=== PATIENT | female | born 1940 | race Caucasian/White ===

== ENCOUNTER 2016-07-29 10:31 | Inpatient (IN) | payer OTHER, BC ==
[~2016-07-29] VITALS: Ht 152.4 cm; Wt 74.7 kg
[~2016-07-29 10:31] MED LIST: ASPIR 8181 M1 PO; ASPIR-MOX 325325 M1 PO; ATIVAN0.5 M1 PO; ATIVAN0.5 MG PO; ATORVASTATIN CA20 MG PO; Aspirin PO; CARDIZEM CD120 M1 PO; CITALOPRAM HBR20 MG PO; FUROSEMIDE20 MG PO; FUROSEMIDE40 MG PO; HUMULIN N100 UNITS/ SC; HUMULIN N100 UNITS/ SQ; K-DUR10 ME1 PO; K-DUR20 MEQ PO; LASIX10 MG PO; LASIX20 MG PO; LASIX40 MG PO; LISINOPRIL40 MG PO; LOPRESSOR25 MG PO; NORVASC10 MG PO; NovoLIN N (NPH),Humu SC; OMEPRAZOLE20 M2 PO; TYLENOL EXTRA500 MG PO; WARFARIN SODIU2.5 MG PO; ZESTRIL,PRINIVI30 MG PO; ZOCOR40 MG PO
[2016-07-29 12:02] LABS: HEMATOCRIT 32.6 % (36.0-46.0); MCH 24.6 PG (29.0-34.0); MCHC 31.3 G/DL (30.0-36.0); MCV 78.7 FL (83-99); MEAN PLAT.VOLUME 11.5 uM^3 (9.5-12.4); PLATELET COUNT 196 K/uL (156-360); RBC DIS.WIDTH-CV 17.1 % (11.8-14.6); RBC DIS.WIDTH-SD 47.2 % (39-53); RED BLOOD COUNT 4.14 M/uL (3.80-5.20); WHITE BLOOD COUNT 5.6 K/uL (4.1-10.2)
[2016-07-29 12:13] LABS: CHLORIDE 101 mEq/L (99-109); INTER. NORMALIZED RATIO 3.2; POTASSIUM 4.2 mEq/L (3.7-5.4); PROTHROMBIN TIME 33.5 (9.2-11.2); SODIUM 140 mEq/L (136-147)
[2016-07-29 12:15] LABS: GLUCOSE 135 mg/dL (70-99)
[2016-07-29 12:16] LABS: ANION GAP 11 MEQ/L (2-14)
[2016-07-29 12:19] LABS: GFR ESTIMATE (CALCULATED) > 59 mL/min/
[2016-07-29 12:20] LABS: UREA NITROGEN (BUN) 17 mg/dL (9-23)
[2016-07-29 12:22] LABS: LIPASE 36 U/L (1.0-51.0)
[2016-07-29 12:25] LABS: TROP-I INTERPRETATION NEGATIVE; TROPONIN-I 0.03 ng/mL (0.0-0.30)
[2016-07-29 12:40] LABS: ADD MIUA? NO; BILIRUBIN NEGATIVE; BLOOD NEGATIVE; COLOR YELLOW ((YELLOW)); GLUCOSE (STRIP) NEGATIVE; KETONES NEGATIVE; LEUKOCYTES NEGATIVE; NITRITE NEGATIVE; PROTEIN (STRIP) NEGATIVE; SPECIFIC GRAVITY 1.011 (1.000-1.030); UCUL ADDED? NO; UROBILINOGEN 0.2 MG/DL (0.2-1.0)
[2016-07-29] MEDS ORDERED: LORAZEPAM0.5 MG PO ×2 (17:05→17:41)
[2016-07-29] MEDS ORDERED: FUROSEMIDE20 MG PO (17:05)
[2016-07-29] MEDS ORDERED: CARTIA XT120 MG PO (17:24)
[2016-07-29] MEDS ORDERED: LOSARTAN POTASS50 MG PO (17:25)
[2016-07-29] MEDS ORDERED: LASIX40 MG PO (17:47)
[2016-07-29] MEDS ORDERED: WARFARIN SODIUM1 MG PO (17:51)
[2016-07-29 22:02] VITALS: BP 136/83
[2016-07-30 04:17] VITALS: BP 143/67
[2016-07-30 07:04] VITALS: BP 115/56
[2016-07-30 07:11] LABS: INTER. NORMALIZED RATIO 3.1
[2016-07-30 07:20] LABS: ANION GAP 10 MEQ/L (2-14); CHLORIDE 97 MEQ/L (99-109); GFR ESTIMATE (CALCULATED) > 59 mL/min/; POTASSIUM 3.8 MEQ/L (3.7-5.4); SAMPLE HEMOLYSIS CHECK 0; SAMPLE ICTERIC CHECK 0; SAMPLE LIPEMIA CHECK 0; SODIUM 141 MEQ/L (136-147); UREA NITROGEN (BUN) 15 mg/dL (9-23)
[2016-07-30 07:23] LABS: GLUCOSE 95 mg/dL (70-99)
[2016-07-30 07:47] LABS: POINT-OF-CARE METER ID UU13113831
[2016-07-30 12:17] VITALS: BP 136/92
[2016-07-30 16:55] VITALS: BP 130/63
[2016-07-30 21:00] VITALS: BP 119/58
[2016-07-30 23:49] VITALS: BP 156/87
[2016-07-31 05:10] VITALS: BP 136/72
[2016-07-31 05:31] LABS: HEMATOCRIT 34.7 % (36.0-46.0); MCH 24.3 PG (29.0-34.0); MCHC 30.5 G/DL (30.0-36.0); MCV 79.6 FL (83-99); MEAN PLAT.VOLUME 10.4 uM^3 (9.5-12.4); PLATELET COUNT 188 K/uL (156-360); RBC DIS.WIDTH-CV 16.8 % (11.8-14.6); RBC DIS.WIDTH-SD 48.5 % (39-53); RED BLOOD COUNT 4.36 M/uL (3.80-5.20); WHITE BLOOD COUNT 6.2 K/uL (4.1-10.2)
[2016-07-31 05:39] LABS: INTER. NORMALIZED RATIO 2.7
[2016-07-31 06:10] LABS: ANION GAP 8 MEQ/L (2-14); CHLORIDE 95 MEQ/L (99-109); GFR ESTIMATE (CALCULATED) > 59 mL/min/; GLUCOSE 100 mg/dL (70-99); POTASSIUM 3.6 MEQ/L (3.7-5.4); SAMPLE HEMOLYSIS CHECK 0; SAMPLE ICTERIC CHECK 0; SAMPLE LIPEMIA CHECK 0; SODIUM 140 MEQ/L (136-147); UREA NITROGEN (BUN) 16 mg/dL (9-23)
[2016-07-31 07:20] VITALS: BP 109/60
[2016-07-31 11:20] VITALS: BP 94/54
== END 2016-07-31 16:22 | disposition home or self-care (01) | DRG 291 ==
LOC: EME 10:31 → EDOF 16:52 → 5WEST 19:40 → 4EAST 07-30 17:44
PROVIDERS: Emergency Medicine; Hospitalist; Internal Medicine; Physician Assistant
DX: I50.43 Acute on chronic combined systolic (congestive) and diastolic (congestive) heart failure (principal); J90 Pleural effusion, not elsewhere classified; J18.9 Pneumonia, unspecified organism; E11.9 Type 2 diabetes mellitus without complications; I10 Essential (primary) hypertension; I48.2 Chronic atrial fibrillation; K21.9 Gastro-esophageal reflux disease without esophagitis; F32.9 Major depressive disorder, single episode, unspecified; E78.5 Hyperlipidemia, unspecified; R06.01 Orthopnea; I25.10 Atherosclerotic heart disease of native coronary artery without angina pectoris; Z79.4 Long term (current) use of insulin; Z79.01 Long term (current) use of anticoagulants; Z95.1 Presence of aortocoronary bypass graft; I35.0 Nonrheumatic aortic (valve) stenosis; Z88.6 Allergy status to analgesic agent; Z91.041 Radiographic dye allergy status; Z88.8 Allergy status to other drugs, medicaments and biological substances; Z79.82 Long term (current) use of aspirin
CPT/HCPCS: 71020; 80048; 81003; 82948; 83605; 83690; 83880; 84484; 85027; 85610; 93005; 99281; 99285; G0378; J1815; J1940